=== PATIENT | female | born 1960 ===

== ENCOUNTER → 2023-04-20 08:46 | Outpatient (CLI) | payer BC, SELFPAY ==
--- NOTE | 2023-04-20 | DI.ECHO.S_ITS ---
[facility] +---------+ : : [address] : [place] [address] : : : : [id number] : : : : Phone: [phone]---------+ Echocardiogram Report + + :Name: ALDEN GORDON Study Date: 04/20/2023 Height: 64 in : :[facility] ReadingLocation: Weight: 125 lb : : Gender: Female BSA: 1.6 m2 : :: 1960 Age: 62 yrs BP: 120/73 mmHg: :Reason For Study: Cardiac Murmur : :Ordering Physician: Jhoana Rayo Performed By: Kimberly Mccabe : :Referring: JHOANA RAYO : + + Interpretation Summary Normal both left and right ventricle size and function. The ejection fraction is 60-65%. No valvular abnormality. Procedure: A two-dimensional transthoracic echocardiogram with color flow and Doppler was performed. The study quality was technically adequate. There is no prior echocardiogram noted for this patient. The patient was in normal sinus rhythm during the exam. Left Ventricle: The left ventricle is normal in size. There is normal left ventricular wall thickness. The ejection fraction is estimated to be 60-65%. There are no focal wall motion abnormalities. Diastolic parameters suggest probable normal left ventricular diastolic function and normal filling pressures. Right Ventricle: The right ventricle is normal in size and function. Atria: The left atrial size is normal. Right atrial size is normal. There is no Doppler evidence for an interatrial shunt. Mitral Valve: The mitral valve leaflets appear borderline thickened, but open well. There is no mitral valve stenosis. There is trace mitral regurgitation. Aortic Valve: The aortic valve is trileaflet. The aortic valve opens well. There is no aortic valve stenosis. No aortic regurgitation is present. Tricuspid Valve: The tricuspid valve is normal. There is no tricuspid stenosis. There is trace tricuspid regurgitation. The right ventricular systolic pressure is estimated to be at least 18 mmHg based on an estimated right atrial pressure of 3 mm Hg. Pulmonic Valve: The pulmonic valve leaflets are thin and pliable; valve motion is normal. There is no pulmonic valvular stenosis. There is trace pulmonic regurgitation. Great Vessels: The aortic root is normal size. The ascending aorta is normal in size. The pulmonary artery is normal size. The IVC is of normal diameter and collapses greater than 50% with a sniff. This suggests a low right atrial pressure of 3 mm Hg. Pericardium/ Pleura There is a trivial pericardial effusion noted. There is no pleural effusion. MMode/2D Measurements & Calculations LVIDd: 4.1 cm LVOT diam: 1.7 cm LVIDs: 2.3 cm Ao root diam: 2.7 cm FS: 43.9 % asc Aorta Diam: 3.0 cm IVSd: 1.0 cm LVPWd: 0.90 cm LV garcia. diameter/BSA (cm/m^2): 2.6 LV sys. diameter/BSA (cm/m^2): 1.4 LA A2 area: 15.2 cm2 RA long axis: 4.8 cm LA A4 area: 12.6 cm2 RA area: 11.4 cm2 LA length (vol): 4.9 cm RA vol: 22.8 ml LA vol: 33.0 ml RA : 14.2 ml/m2 LA vol index: 20.6 ml/m2 RVD1 (basal): 2.8 cm LVLs ap4: 4.9 cm LVLd ap2: 6.4 cm TAPSE_phl: 2.0 cm LVLs ap2: 5.0 cm Doppler Measurements & Calculations Ao V2 max: 181.0 cm/sec LVOT Max Jhonatan: 114.0 cm/sec Ao V2 mean: 116.0 cm/sec LV V1 max P.2 mmHg Ao max P.0 mmHg LV V1 VTI: 28.9 cm Ao mean P.0 mmHg JENELLE(I,D): 1.4 cm2 Ao V2 VTI: 46.0 cm JENELLE(V,D): 1.4 cm2 sev ratio: 0.63 JENELLE indexed to BSA (cm^2/m^2): 0.89 MV E max jhonatan: 104.0 cm/sec TR max jhonatan: 197.0 cm/sec MV A max jhonatan: 98.5 cm/sec TR max P.5 mmHg MV E/A: 1.1 PA V2 max: 109.0 cm/sec Med Peak E' Jhonatan: 6.9 cm/sec PA V2 mean: 75.5 cm/sec E/E' med: 15.1 PA mean P.0 mmHg Lat Peak E' Jhonatan: 8.7 cm/sec PA pr(Accel): 14.6 mmHg E/E' lat: 12.0 E/e' average: 13.5 MV dec time: 0.24 sec SV(LVOT): 65.6 ml AV VR_phl: 0.63 JENELLE(VTI)/BSA_phl: 0.89 MV P1/2t-pr_phl: 70.0 msec Electronically signed by: Obdulia Hua on Reading Physician:04/20/2023 01:34 PM
== END ==
PROVIDERS: PCP Physician Assistant; Referring Provider Physician Assistant; Visit Provider Physician Assistant
DX: R01.1 Cardiac murmur, unspecified (principal)
CPT/HCPCS: 93306